=== PATIENT | male | born 1945 | race Asian ===

== ENCOUNTER 2019-12-21 17:57 | Emergency (ER) | payer OTHER, MEDICAID ==
[~2019-12-21] VITALS: Ht 177.8 cm; Wt 113.4 kg
[2019-12-21 17:57] VITALS: Ht 177.8 cm; Wt 113.4 kg
== END 2019-12-22 00:39 | disposition expired ==
LOC: ED 17:57
DX: I46.9 Cardiac arrest, cause unspecified (principal); I10 Essential (primary) hypertension
CPT/HCPCS: J3490